=== PATIENT | male | born 1950 ===

== ENCOUNTER 2017-11-19 13:05 | Inpatient (IN) | payer MEDICARE, SELFPAY ==
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
[2017-11-19 14:58] LABS: Bilirubin Negative (Negative); Blood, Urine Trace (Negative); Clarity CLEAR (Clear); Glucose, Urine (Dipstick) Negative (Negative); Leukocyte Negative (Negative); Nitrite Negative (Negative); Protein, Urine (Dipstick) Negative (Neg-Trace); Specific Gravity, Urine 1.021 (1.002-1.036); Urobilinogen 0.2 mg/dL (0.2-1.0); pH, Urine 6.5 (5.0-9.0)
[2017-11-19 15:00] LABS: Bacteria/HPF None Seen HPF (None Seen); Hyaline Casts/LPF 0-3 HYALINE CAST LPF (0-3 Hyaline); Renal Epithelial None Seen HPF (0-3); Squamous Epithelial 0-3 HPF (0-3); Transitional Epithelial NONE SEEN HPF (0-3); WBC/HPF 0-3 HPF (0-3)
[2017-11-19] MEDS ORDERED: Morphine 4 MG/ML VIAL ONE (15:05)
[2017-11-19] MEDS ORDERED: Ketorolac Tromethamine 30 MG/ML VIAL ONE (15:05)
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
[2017-11-19 15:29] LABS: #Eosinphils 0.1 thou/uL (0.0-0.7); #Lymphocytes 1.7 thou/uL (1.20-3.40); #Monocytes 1.2 thou/uL (0.11-0.59); #Neutrophils 13.3 thou/uL (1.40-6.50); %Basophils 0.1 % (0.0-1.0); %Eosinophils 0.4 % (0.0-10.0); %Lymphocytes 10.7 % (21.0-51.0); %Monocytes 7.3 % (0.0-10.0); %Neutrophils 81.5 % (42.0-75.0); Hemoglobin 15.4 g/dL (14.0-18.0); Mean Corpuscular HGB CONC 32.9 g/dL (32.0-36.0); Mean Corpuscular Hemoglobin 32.1 pg (27.0-31.0); Mean Corpuscular Volume 97.5 fl (80.0-94.0); Mean Platelet Volume 6.4 fL (7.4-10.4); Platelet Count 320 thou/uL (130-400); RBC Distribution Width 12.5 % (11.5-14.5); Red Blood Cell (RBC) Count 4.81 mill/uL (4.70-6.10); White Blood Cell (WBC) Count 16.3 thou/uL (4.8-10.8)
[2017-11-19 15:48] LABS: Anion Gap 12 mmol/L (10-20); BUN (Urea Nitrogen) 12 mg/dL (8.4-25.7); Calc. Creatinine Clearance 0 mL/min (70-130); Calcium 9.3 mg/dL (7.8-10.44); Carbon Dioxide 23 mmol/L (23-31); Chloride 103 mmol/L (98-107); Estimated GFR-MDRD 75; Glucose 100 mg/dL (80-115); Potassium 4.3 mmol/L (3.5-5.1); Sodium 134 mmol/L (136-145)
[2017-11-19] MEDS ORDERED: ISOVUE-370 76%-LOCM 1 ML ONE (16:26)
[2017-11-19] MEDS ORDERED: Ondansetron ODT 4 MG TAB PO PRN (17:08)
[2017-11-19] MEDS ORDERED: Dextrose 50% Abboject 50 ML SYRINGE SLOW IVP PRN (17:08)
[2017-11-19] MEDS ORDERED: Ondansetron HCl/PF 4 MG/2 ML Vial IVP PRN (17:08)
[2017-11-19] MEDS ORDERED: hydrALAZINE 20 MG/ML VIAL SLOW IVP PRN (17:08)
[2017-11-19] MEDS ORDERED: Rib Fracture Protocol PO SCH ×2 (17:08)
[2017-11-19] MEDS ORDERED: Dextrose 5% in Water 1,000 ML IV PRN (17:08)
[2017-11-19] MEDS ORDERED: Cyclobenzaprine 10 MG TAB PO PRN (17:15)
[2017-11-19] MEDS: Acetaminophen 500 MG TAB PO SCH ×2 (18:59→23:49)
[2017-11-19] MEDS: traMADol HCl 50 MG TAB PO SCH ×2 (18:59→23:56)
[2017-11-19] MEDS: Ibuprofen 800 MG TAB PO SCH ×2 (18:59→23:49)
[2017-11-19] MEDS: Famotidine 20 MG TAB PO SCH (20:38)
[2017-11-19] MEDS: Gabapentin 300 MG CAP PO SCH (20:39)
[2017-11-19] MEDS: Oxazepam 10 MG CAP PO SCH (20:39)
[2017-11-19] MEDS: Senokot S 8.6-50 MG TAB PO SCH (20:39)
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
[2017-11-20 05:44] LABS: Anion Gap 13 mmol/L (10-20); BUN (Urea Nitrogen) 17 mg/dL (8.4-25.7); Calc. Creatinine Clearance 0 mL/min (70-130); Calcium 8.7 mg/dL (7.8-10.44); Carbon Dioxide 24 mmol/L (23-31); Chloride 103 mmol/L (98-107); Estimated GFR-MDRD 57; Glucose 98 mg/dL (80-115); Magnesium 2.4 mg/dL (1.6-2.6); Potassium 3.8 mmol/L (3.5-5.1); Sodium 136 mmol/L (136-145)
[2017-11-20] MEDS: Ibuprofen 800 MG TAB PO SCH ×4 (06:10→23:32)
[2017-11-20] MEDS: Acetaminophen 500 MG TAB PO SCH ×4 (06:10→23:32)
[2017-11-20] MEDS: traMADol HCl 50 MG TAB PO SCH ×4 (06:10→23:32)
[2017-11-20 06:25] LABS: Band 6 % (5-11); Eosinophils 3 % (0-10); Hemoglobin 13.2 g/dL (14.0-18.0); Lymphocytes 21 % (21-51); MDiff Complete? YES; Mean Corpuscular HGB CONC 33.3 g/dL (32.0-36.0); Mean Corpuscular Hemoglobin 32.2 pg (27.0-31.0); Mean Corpuscular Volume 96.5 fl (80.0-94.0); Mean Platelet Volume 6.6 fL (7.4-10.4); Monocytes 19 % (0-10); Neutrophil 51 % (42-75); Platelet Count 269 thou/uL (130-400); RBC Distribution Width 12.4 % (11.5-14.5); White Blood Cell (WBC) Count 6.5 thou/uL (4.8-10.8)
[2017-11-20] MEDS: Famotidine 20 MG TAB PO SCH ×2 (08:18→20:44)
[2017-11-20] MEDS: Gabapentin 300 MG CAP PO SCH ×3 (08:18→20:44)
[2017-11-20] MEDS: Folic Acid 1 MG TAB PO SCH (08:18)
[2017-11-20] MEDS: Oxazepam 10 MG CAP PO SCH ×3 (08:18→20:45)
[2017-11-20] MEDS: Senokot S 8.6-50 MG TAB PO SCH ×2 (08:18→20:44)
[2017-11-20] MEDS: Polyethylene Glycol 3350 17 GM Packet PO SCH (08:18)
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
[2017-11-20] MEDS: Nicotine 21 MG PATCH TD SCH (14:06)
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
[2017-11-21] MEDS: Acetaminophen 500 MG TAB PO SCH ×4 (05:21→23:26)
[2017-11-21] MEDS: Ibuprofen 800 MG TAB PO SCH ×4 (05:21→23:26)
[2017-11-21] MEDS: traMADol HCl 50 MG TAB PO SCH ×4 (05:21→23:26)
[2017-11-21] MEDS: Polyethylene Glycol 3350 17 GM Packet PO SCH (08:56)
[2017-11-21] MEDS: Senokot S 8.6-50 MG TAB PO SCH ×2 (08:56→20:43)
[2017-11-21] MEDS: Famotidine 20 MG TAB PO SCH ×2 (08:57→20:43)
[2017-11-21] MEDS: Folic Acid 1 MG TAB PO SCH (08:57)
[2017-11-21] MEDS: Gabapentin 300 MG CAP PO SCH ×3 (08:57→20:43)
[2017-11-21] MEDS: Oxazepam 10 MG CAP PO SCH ×3 (08:58→20:43)
[2017-11-21] MEDS: Nicotine 21 MG PATCH TD SCH (12:59)
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
[2017-11-22] MEDS: Acetaminophen 500 MG TAB PO SCH ×4 (06:04→23:23)
[2017-11-22] MEDS: Ibuprofen 800 MG TAB PO SCH ×4 (06:04→23:23)
[2017-11-22] MEDS: traMADol HCl 50 MG TAB PO SCH ×4 (06:04→23:23)
[2017-11-22] MEDS: Folic Acid 1 MG TAB PO SCH (08:08)
[2017-11-22] MEDS: Gabapentin 300 MG CAP PO SCH ×3 (08:08→20:35)
[2017-11-22] MEDS: Senokot S 8.6-50 MG TAB PO SCH ×2 (08:08→20:35)
[2017-11-22] MEDS: Oxazepam 10 MG CAP PO SCH ×3 (08:08→20:35)
[2017-11-22] MEDS: Famotidine 20 MG TAB PO SCH ×2 (08:08→20:35)
[2017-11-22] MEDS: Polyethylene Glycol 3350 17 GM Packet PO SCH (08:08)
[2017-11-22] MEDS ORDERED: Enoxaparin Sodium 40 MG/0.4 ML SYRINGE SC SCH (09:00)
--- NOTE | 2017-11-22 11:45 | ULT ---
BILATERAL LOWER EXTREMITY VENOUS ULTRASOUND: COMPARISON: None. HISTORY: Left lower extremity pain and edema. TECHNIQUE: Multiplanar, acevedo scale, and color Doppler images were obtained in a bilateral lower extremity venous ultrasound. Spectral analysis of Doppler waveforms was performed. FINDINGS: The right common femoral vein, profunda femoral vein, superficial femoral vein, and popliteal vein ar e normal in appearance without visible thrombus. These vessels demonstrate normal compression, flow, and augmentation. The posterior tibial vein and greater saphenous vein are patent on the right. The left popliteal vein demonstrates normal flow but is incompletely compressible. No obvious thromb us is seen in the popliteal vein. The left common femoral vein, profunda femoral vein, and superfici al femoral vein demonstrate normal compression, flow, and augmentation without evidence of thrombus. The left posterior tibial vein and greater saphenous vein are patent. IMPRESSION: 1. No obvious deep vein thrombosis visualized. 2. There is an incompletely compressible left popliteal vein, but flow is seen in this section of ve in on real-time images. The flow appears slightly sluggish in this location. The reason for incompl ete compressibility is uncertain. POS: [facility]
[2017-11-22] MEDS: Enoxaparin Sodium 40 MG/0.4 ML SYRINGE SC SCH (12:51)
[2017-11-22] MEDS: Aspirin 81 mg Enteric Coated Tablet PO SCH (12:51)
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
[2017-11-22] MEDS: Nicotine 21 MG PATCH TD SCH (16:21)
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
[2017-11-23] MEDS: Acetaminophen 500 MG TAB PO SCH ×2 (05:44→11:42)
[2017-11-23] MEDS: Ibuprofen 800 MG TAB PO SCH ×2 (05:44→11:42)
[2017-11-23] MEDS: traMADol HCl 50 MG TAB PO SCH ×2 (05:45→11:43)
[2017-11-23] MEDS: Enoxaparin Sodium 40 MG/0.4 ML SYRINGE SC SCH (08:39)
[2017-11-23] MEDS: Senokot 8.6 MG TAB PO SCH ×2 (08:40→08:52)
[2017-11-23] MEDS: Gabapentin 300 MG CAP PO SCH ×2 (08:40→14:34)
[2017-11-23] MEDS: Folic Acid 1 MG TAB PO SCH (08:40)
[2017-11-23] MEDS: Aspirin 81 mg Enteric Coated Tablet PO SCH (08:40)
[2017-11-23] MEDS: Polyethylene Glycol 3350 17 GM Packet PO SCH (08:40)
[2017-11-23] MEDS: Senokot S 8.6-50 MG TAB PO SCH (08:43)
[2017-11-23] MEDS: Oxazepam 10 MG CAP PO SCH ×2 (08:45→14:34)
[2017-11-23] MEDS ORDERED: Bisacodyl 10 MG SUPP PR SCH (09:00)
[2017-11-23] MEDS ORDERED: Docusate 100 MG CAP PO SCH (09:00)
[2017-11-23] MEDS ORDERED: Magnesium Citrate 300 ML BOT PO SCH (09:30)
[2017-11-23] MEDS: Famotidine 20 MG TAB PO SCH (10:16)
[2017-11-23] MEDS: Nicotine 21 MG PATCH TD SCH (13:01)
[2017-11-23 16:03] VITALS: BP 131/77; TEMP 97.8
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
== END 2017-11-23 17:20 | DRG 552 ==
LOC: ERS 13:05 → SJJU 16:38
PROVIDERS: ADMIT Surgery; ATTEND Surgery
DX: S32.10XA Unspecified fracture of sacrum, initial encounter for closed fracture (principal); S32.592A Other specified fracture of left pubis, initial encounter for closed fracture; I69.351 Hemiplegia and hemiparesis following cerebral infarction affecting right dominant side; V43.52XA Car driver injured in collision with other type car in traffic accident, initial encounter; I25.10 Atherosclerotic heart disease of native coronary artery without angina pectoris; Z95.1 Presence of aortocoronary bypass graft; Z95.5 Presence of coronary angioplasty implant and graft; Z85.46 Personal history of malignant neoplasm of prostate; Z92.3 Personal history of irradiation; F17.210 Nicotine dependence, cigarettes, uncomplicated; Z79.82 Long term (current) use of aspirin
CPT/HCPCS: 36415; 71045; 71260; 74177; 80048; 81003; 81015; 83735; 84100; 85025; 93970; 94640; 96374; 96375; G8978-GP-CL; G8979-GP-CI; G8987-GO-CM; G8988-GO-CJ; J1650; J1885; J2270; J7620